=== PATIENT | male | born 1995 | race Hispanic/Latino ===

== ENCOUNTER 2017-06-07 23:04 | Emergency (ER) | payer OTHER ==
[2017-06-07 23:09] VITALS: BP 142/94; PULSE 101; RESP 16; TEMP 98.6; O2SAT 99
[2017-06-07 23:10] VITALS: BMI 25.1
--- NOTE | 2017-06-08 01:24 | ED PDOC ---
HPI: Psych/Substance Abuse Time Seen by Provider: 06/07/17 23:11 Chief Complaint (Nursing): Psychiatric Evaluation Chief Complaint (Provider): Depression History Per: Patient History/Exam Limitations: no limitations Onset/Duration Of Symptoms: Days (x 2) Current Symptoms Are (Timing): Still Present Suicide/Self Injury Attempted (Context): Cut Wrists Additional Complaint(s): 22 y/o male with a history of depression, who presents to the ED after a verbal altercation with , during which he sustained a small abrasion to his left wrist. No active suicidal thoughts or ideations. Patient states hes having relationship issues with his . No associated medical complaints. No associated cough, fever, shortness of breath, chest pain, nausea, vomiting, or diarrhea. PMD: Unknown Past Medical History Reviewed: Historical Data, Nursing Documentation, Vital Signs Vital Signs: Last Vital Signs Temp 98.6 F 06/07/17 23:09 Pulse 101 H 06/07/17 23:09 Resp 16 06/07/17 23:09 BP 142/94 H 06/07/17 23:09 Pulse Ox 99 06/07/17 23:09 - Medical History PMH: Depression - Surgical History Surgical History: No Surg Hx - Family History Family History: States: Unknown Family Hx - Social History Current smoker - smoking cessation education provided: No Alcohol: None Drugs: Denies - Allergies Allergies/Adverse Reactions: Allergies Allergy/AdvReac Type Severity Reaction Status Date / Time No Known Allergies Allergy Verified 06/07/17 23:15 Review of Systems ROS Statement: Except As Marked, All Systems Reviewed And Found Negative Constitutional: Negative for: Fever Cardiovascular: Negative for: Chest Pain Respiratory: Negative for: Cough, Shortness of Breath Gastrointestinal: Negative for: Nausea, Vomiting, Diarrhea Psych: Positive for: Depression Physical Exam - Reviewed Nursing Documentation Reviewed: Yes Vital Signs Reviewed: Yes - Physical Exam Appears: Positive for: Non-toxic, No Acute Distress Head Exam: Positive for: ATRAUMATIC, NORMAL INSPECTION, NORMOCEPHALIC Skin: Positive for: Normal Color, Warm, Dry Eye Exam: Positive for: EOMI, Normal appearance, PERRL Neck: Positive for: Normal, Painless ROM Cardiovascular/Chest: Positive for: Regular Rate, Rhythm. Negative for: Murmur Respiratory: Positive for: Normal Breath Sounds. Negative for: Accessory Muscle Use, Respiratory Distress Gastrointestinal/Abdominal: Positive for: Normal Exam, Soft. Negative for: Tenderness Back: Positive for: Normal Inspection. Negative for: L CVA Tenderness, R CVA Tenderness Extremity: Positive for: Normal ROM, Other (Small abrasion to left wrist). Negative for: Pedal Edema, Deformity Neurologic/Psych: Positive for: Alert, Oriented - ECG O2 Sat by Pulse Oximetry: 99 (RA) Pulse Ox Interpretation: Normal Medical Decision Making Medical Decision Making: Time: 23:22 Initial Impression: 22 y/o male with self-injurious behavior in setting of marital strain and known depression Initial Plan: --Urine drug screen --Urine dipstick --Crisis evaluation --Placed on 1:1 observation Time: : --Patient has been evaluated by crisis and is medically stable for discharge. Clinical Impression: Depression Scribe Attestation: Documented by Tamika Carrillo, acting as a scribe for Nitesh Brock MD Provider Scribe Attestation: All medical record entries made by the Scribe were at my direction and personally dictated by me. I have reviewed the chart and agree that the record accurately reflects my personal performance of the history, physical exam, medical decision making, and the department course for this patient. I have also personally directed, reviewed, and agree with the discharge instructions and disposition. Disposition - Clinical Impression Clinical Impression: Depression - Patient ED Disposition Is Patient to be Admitted: No Counseled Patient/Family Regarding: Diagnosis, Need For Followup - Disposition Disposition: Routine/Home Disposition Time: :19 Condition: STABLE Instructions: Depression (ED) Forms: [employer] (Panamanian)
== END 2017-06-08 01:42 | disposition home or self-care (01) ==
LOC: H.ER 23:04
DX: F32.9 Major depressive disorder, single episode, unspecified (principal)

== ENCOUNTER 2018-03-25 22:28 | Emergency (ER) | payer SELFPAY ==
[2018-03-25 22:28] VITALS: BMI 25.1
[2018-03-25] MEDS ORDERED: Sodium Chloride 0.9% 1,000 ML IV STA (23:34)
[2018-03-25] MEDS ORDERED: Iohexol 240 (50 ml) PO ONE (23:35)
--- NOTE | 2018-03-25 23:38 | ED PDOC ---
HPI: Abdomen Time Seen by Provider: 03/25/18 23:24 Chief Complaint (Nursing): Dizziness/Lightheaded Chief Complaint (Provider): abdominal pain History Per: Patient History/Exam Limitations: no limitations Onset/Duration Of Symptoms: Days (1) Current Symptoms Are (Timing): Still Present Location Of Pain/Discomfort: RLQ, LLQ, Suprapubic Quality Of Discomfort: Sharp, Cramping, "Pain" Associated Symptoms: Fever, Nausea, Vomiting, Diarrhea Additional Complaint(s): 23 y/o male presents for evaluation of lower abdominal pain x 1 day. Associated headache, nausea, vomiting (x1), and multiple episodes of diarrhea ( the last few with bright red blood noted). Ibuprofen taken at 16:00. Denies chest pain, shortness of breath, palpitations, urinary symptoms, recent travel, sick contacts. Past Medical History Reviewed: Historical Data, Nursing Documentation, Vital Signs Vital Signs: Last Vital Signs Temp 99.2 F 03/26/18 02:56 Pulse 70 03/26/18 02:56 Resp 20 03/26/18 02:56 BP 115/61 03/26/18 02:56 Pulse Ox 98 03/26/18 04:39 - Medical History PMH: Depression Denies: Diabetes, Hepatitis, HIV, HTN, Seizures, Sexually Transmitted Disease - Surgical History Surgical History: No Surg Hx - Family History Family History: States: Unknown Family Hx - Living Arrangements Living Arrangements: With Family - Home Medications Home Medications: Ambulatory Orders Medication Instructions Recorded Ciprofloxacin HCl [Cipro] 500 mg PO BID #19 tab 03/26/18 Dicyclomine [Bentyl] 20 mg PO TID PRN #15 tab 03/26/18 Ibuprofen [Motrin Tab] 1 tab PO Q6 PRN #20 tab 03/26/18 Metronidazole [Flagyl] 500 mg PO TID #29 tablet 03/26/18 - Allergies Allergies/Adverse Reactions: Allergies Allergy/AdvReac Type Severity Reaction Status Date / Time No Known Allergies Allergy Verified 06/07/17 23:15 Review of Systems ROS Statement: Except As Marked, All Systems Reviewed And Found Negative Constitutional: Positive for: Fever Gastrointestinal: Positive for: Nausea, Vomiting, Abdominal Pain, Diarrhea Physical Exam - Reviewed Nursing Documentation Reviewed: Yes Vital Signs Reviewed: Yes - Physical Exam Appears: Positive for: Well, Non-toxic, Uncomfortable Head Exam: Positive for: ATRAUMATIC, NORMAL INSPECTION, NORMOCEPHALIC Skin: Positive for: Normal Color Eye Exam: Positive for: Normal appearance ENT: Positive for: Normal ENT Inspection Cardiovascular/Chest: Positive for: Regular Rate, Rhythm Respiratory: Positive for: Normal Breath Sounds Gastrointestinal/Abdominal: Positive for: Bowel Sounds, Soft, Tenderness ( diffuse lower abdominal tenderness) Back: Positive for: Normal Inspection Extremity: Positive for: Normal ROM Neurologic/Psych: Positive for: Alert, Oriented - Laboratory Results Result Diagrams: 03/26/18 00:05 03/26/18 00:05 - ECG O2 Sat by Pulse Oximetry: 98 - Progress ED Course And Treament: labs, urine, CT abd/pelvis, IV fluids, IV zofran, PO Tylenol EXAM: CT Abdomen and Pelvis With Intravenous Contrast EXAM DATE/TIME: Examination ordered 03/25/2018 11:35 PM. Image number total count reviewed [id number] CLINICAL HISTORY: The patient is 23 years old and is male; Pain; Abdominal pain; Localized; Lower ; Additional info: Fever, lower abd pain, bloody diarrhea Facility exam id and description: Ct_ abdpelc abd pelvis po iv contrast TECHNIQUE: Axial computed tomography images of the abdomen and pelvis with intravenous contrast. All CT scans at this facility use at least one of these dose optimization techniques: automated exposure control; mA and/or kV adjustment per patient size (includes targeted exams where dose is matched to clinical indication); or iterative reconstruction. CONTRAST: 90 mL of administered intravenously. COMPARISON: CT ABD AND PELV W/CONTRAST 2013-02-22 14:37 FINDINGS: LUNG BASES: Dependent atelectasis possibly minimal infiltrate lung bases. ABDOMEN: LIVER: Unremarkable. GALLBLADDER AND BILE DUCTS: Unremarkable. No calcified stones. No ductal dilation. PANCREAS: Unremarkable. No mass. No ductal dilation. SPLEEN: Unremarkable. No splenomegaly. ADRENALS: Unremarkable. No mass. KIDNEYS AND URETERS: Unremarkable. No solid mass. No hydronephrosis. STOMACH AND BOWEL: Portions of bowel loops are thickened which may be infectious/inflammatory. Few mildly dilated small bowel loops may be from ileus or obstruction. Follow up. PELVIS: APPENDIX: No findings to suggest acute appendicitis. BLADDER: Unremarkable. REPRODUCTIVE: Unremarkable as visualized. ABDOMEN and PELVIS: INTRAPERITONEAL SPACE: No free air. No significant fluid collection. BONES/JOINTS: No acute fracture. No dislocation. SOFT TISSUES: Unremarkable. VASCULATURE: No abdominal aortic aneurysm. LYMPH NODES: No enlarged lymph nodes. IMPRESSION: 1. Dependent atelectasis possibly minimal infiltrate lung bases. 2. Portions of bowel loops are thickened which may be infectious/inflammatory. Few mildly dilated small bowel loops may be from ileus or obstruction. Follow up. No clinical signs of ileus/obstruction; patient having bowel movements, tolerating PO/no vomiting Patient states he is feeling better. Vitals improved Patient educated on findings, discharged with rx Cipro (dose given in ED), Flagyl (dose given in ED), bentyl, ibuprofen Advised bland diet. Fluids Follow up PMD 2-3 days. Return precautions given Disposition - Clinical Impression Clinical Impression: Colitis - Patient ED Disposition Is Patient to be Admitted: No Counseled Patient/Family Regarding: Studies Performed, Diagnosis, Need For Followup, Rx Given - Disposition Referrals: [facility] [Outside] Adrian White MD [Medical Doctor] - Disposition: Routine/Home Disposition Time: 05:10 Condition: IMPROVED Prescriptions: Ciprofloxacin HCl [Cipro] 500 mg PO BID #19 tab Dicyclomine [Bentyl] 20 mg PO TID PRN #15 tab PRN Reason: Pain, Mild (1-3) Ibuprofen [Motrin Tab] 1 tab PO Q6 PRN #20 tab PRN Reason: Fever >100.4 F Metronidazole [Flagyl] 500 mg PO TID #29 tablet Instructions: Diarrhea in Adolescents and Adults Forms: [employer] (Urdu)
[2018-03-25] MEDS ORDERED: Iohexol 240 (50 ml) ONE (23:56)
[2018-03-26 00:22] LABS: BASO % 0.1 % (0.0-2.0); EOS % 0.1 % (0.0-4.0); LYMPH # 0.7 K/uL (1.0-4.3); LYMPH % 5.9 % (20.0-40.0); MEAN CELL VOLUME 92.6 fl (80.0-94.0); MEAN CORPUSCULAR HEMOGLOBIN 31.4 pg (27.0-31.0); MEAN CORPUSCULAR HGB CONC 33.9 g/dL (33.0-37.0); MEAN PLATELET VOLUME 7.4 fl (7.2-11.7); MONO # 0.8 K/uL (0.0-0.8); MONO % 7.2 % (0.0-10.0); NEUT # 10.2 K/uL (1.8-7.0); NEUT % 86.7 % (50.0-75.0); PLATELET COUNT 262 K/uL (130-400); RBC 5.42 Mil/uL (4.40-5.90); RED CELL DISTRIBUTION WIDTH 13.3 % (11.5-14.5); WHITE BLOOD COUNT 11.8 K/uL (4.8-10.8)
[2018-03-26 00:30] LABS: ALB/GLOB RATIO 1.2 (1.0-2.1); ALBUMIN 4.4 g/dL (3.5-5.0); ALT/SGPT 39 U/L (21-72); AST/SGOT 27 U/L (17-59); BLOOD UREA NITROGEN 11 mg/dl (9-20); CALCIUM 9.1 mg/dL (8.4-10.2); GFR AFRICAN-AMERICAN > 60; GFR NON-AFRICAN AMERICAN > 60
[2018-03-26 00:43] LABS: VENOUS BLOOD GAS BASE EXCESS -8.1 mmol/L (0.0-2.0); VENOUS BLOOD GAS PCO2 57 mmHg (40-60); VENOUS BLOOD GAS PO2 40 mm/Hg (30-55); VENOUS BLOOD PH 7.18 (7.32-7.43)
[2018-03-26] MEDS ORDERED: Iohexol 300 100 ML IJ ONE (02:11)
[2018-03-26] MEDS ORDERED: Sodium Chloride 0.9% 50 ML IV ONE (02:12)
[2018-03-26 02:43] LABS: BANDS 2 % (0-2); LYMPHOCYTE 5 % (20-50); MONOCYTE 7 % (0-10); NEUTROPHIL 86 % (42-75); PLATELET ESTIMATE NORMAL (NORMAL); TOTAL CELLS COUNTED 100
[2018-03-26 02:57] VITALS: TEMP 99.2
[2018-03-26 03:29] LABS: SQUAMOUS EPITHIAL < 1 /hpf (0-5); URINE BACTERIA RARE (<OCC); URINE BILIRUBIN SMALL (NEGATIVE); URINE BLOOD NEGATIVE (NEGATIVE); URINE CLARITY SLIGHTY-CLOUDY (Clear); URINE COLOR AMBER (YELLOW); URINE GLUCOSE (UA) NEG (Normal); URINE HYALINE CAST 0-2 /hpf (0-2); URINE LEUKOCYTE ESTERASE NEG Leu/uL (Negative); URINE PROTEIN 30 mg/dL (NEGATIVE); URINE UROBILINOGEN 0.2-1.0 mg/dL (0.2-1.0)
[2018-03-26 04:38] VITALS: O2SAT 98
[2018-03-26 05:17] VITALS: BP 103/64; PULSE 85; RESP 19
--- NOTE | 2018-03-26 10:26 | CT ---
Date of service: 03/26/2018 PROCEDURE: CT Abdomen and Pelvis with contrast HISTORY: fever, lower abd pain, bloody diarrhea COMPARISON: Comparison is made with the previous study dated 02/22/2013 TECHNIQUE: Contrast dose: 100 mL Omnipaque 300. Axial and reformatted coronal and sagittal CT images of the abdomen and pelvis were obtained after IV and oral contrast administration. Radiation dose: Total exam DLP = 453.9 mGy-cm. This CT exam was performed using one or more of the following dose reduction techniques: Automated exposure control, adjustment of the mA and/or kV according to patient size, and/or use of iterative reconstruction technique. FINDINGS: LOWER THORAX: Small bibasilar atelectasis noted. No evidence of pleural effusion LIVER: Unremarkable. No gross lesion or ductal dilatation. GALLBLADDER AND BILE DUCTS: Unremarkable. PANCREAS: Unremarkable. No gross lesion or ductal dilatation. SPLEEN: Unremarkable. ADRENALS: Unremarkable. No mass. KIDNEYS AND URETERS: Unremarkable. No hydronephrosis. No solid mass. VASCULATURE: Unremarkable. No aortic aneurysm. BOWEL: Mildly dilated small bowel loops demonstrate [id number] wall thickening more prominent at the mid and upper left abdomen consistent with enteritis. Questionable large bowel wall thickening versus incomplete distention more prominent in the descending and sigmoid colon. No evidence of high-grade bowel obstruction. No evidence of pneumatosis. APPENDIX: Normal appendix. PERITONEUM: Unremarkable. No free fluid. No free air. LYMPH NODES: Mildly enlarged mesenteric lymph nodes are noted more prominent around the mesenteric root BLADDER: Unremarkable. REPRODUCTIVE: Unremarkable. BONES: No acute fracture. OTHER FINDINGS: None. IMPRESSION: Mildly dilated small bowel loops demonstrate [id number] wall thickening suggestive of enteritis. The differential consideration includes infection or inflammatory enteritis. Distal large bowel wall thickening versus incomplete distention. Mildly enlarged mesenteric lymph nodes at the mid and upper abdomen. Preliminary report was submitted by [facility].
== END 2018-03-26 05:33 | disposition home or self-care (01) ==
LOC: H.ER 22:28
DX: K52.9 Noninfective gastroenteritis and colitis, unspecified (principal); Z86.59 Personal history of other mental and behavioral disorders
CPT/HCPCS: 74177; 80053; 81003; 82803; 85025; 87040; 96360; 99285; J1885; J2405; J7030; Q9966; Q9967